=== PATIENT | female | born 1935 | race Caucasian/White ===

== ENCOUNTER 2016-05-08 03:47 | Inpatient (IN) | payer SELFPAY ==
[~2016-05-08] VITALS: Ht 149.9 cm; Wt 39.9 kg
[2016-05-08] VITALS (9 sets, daily range): BP systolic 118–143; BP diastolic 59–89
[2016-05-08] MEDS ORDERED: SODIUM CHLORIDE 0.9% 1,000 ML IV ONE ×2 (04:00→05:30)
[2016-05-08] MEDS ORDERED: LEVOFLOXACIN 750MG PREMIX 150 ML IV ONE (04:30)
[2016-05-08 04:39] LABS: HEMATOCRIT. 33.5 % (36.0-48.0); HEMOGLOBIN. 10.7 g/dL (12.0-16.0); MEAN CORPUSCULAR HEMOGLOBIN 28.4 pg (28.0-32.0); MEAN CORPUSCULAR HGB CONC 31.9 g/dL (31.0-37.0); MEAN PLATELET VOLUME 8.1 fl (7.4-10.4); PLATELET 307 x1000/uL (130-400); RED BLOOD CELL COUNT 3.76 mill/uL (4.2-5.4); RED CELL DISTRIBUTION WIDTH 14.8 % (11.6-14.6); WHITE BLOOD COUNT 24.7 x1000/uL (4.5-11.0)
[2016-05-08] MEDS ORDERED: VANCOMYCIN 1 G PREMIX 200 ML IV SCH (04:45)
[2016-05-08 04:46] LABS: PROTHROMBIN TIME 10.9 sec
[2016-05-08 04:49] LABS: AMMONIA 44 uMol/L (<32); DIFFERENTIAL COMMENT 1; INDEX HEMOLYSI 1 (1-3)
[2016-05-08 05:01] LABS: ALANINE AMINOTRANSFERASE 18 IU/L (13-61); ALBUMIN 2.8 g/dL (3.4-5.0); ANION GAP 16; CALCIUM 8.4 mg/dL (8.5-10.1); CARBON DIOXIDE 26 mEq/L (21-32); CHLORIDE 106 mEq/L (98-107); CREATINE KINASE 120 IU/L (26-192); ETHANOL BLOOD < 10 mg/dL; INDEX HEMOLYSI 1 (1-3); INDEX ICTERIC 1 (1-4); INDEX LIPEMIC 1 (1-3); UREA NITROGEN BLOOD 22 mg/dL (7-21); eGFR > 60 mL/min (>60)
[2016-05-08 05:04] LABS: CLARITY URINE CLOUDY (CLEAR); COLOR URINE YELLOW (YELLOW); GLUCOSE URINE 3+ (NEGATIVE); KETONES URINE NEGATIVE (NEGATIVE); LEUKOCYTE ESTERASE URINE 1+ (NEGATIVE); NITRITE URINE NEGATIVE (NEGATIVE); OCCULT BLOOD URINE TRACE (NEGATIVE); PH URINE 5.5 (4.5-8.0); PROTEIN URINE 1+ (NEGATIVE); SPECIFIC GRAVITY URINE 1.021 (1.005-1.030)
[2016-05-08 05:21] LABS: *AMPHETAMINES SCREEN URINE NEGATIVE (NEGATIVE); *BARBITURATES SCREEN URINE NEGATIVE (NEGATIVE); *BENZODIAZEPINES SCREEN URINE NEGATIVE (NEGATIVE); *COCAINE SCREEN URINE NEGATIVE (NEGATIVE); CANNABINOID URINE SCREEN NEGATIVE (NEGATIVE); ECSTASY MDMA SCREEN URINE NEGATIVE (NEGATIVE); METHADONE URINE SCREEN NEGATIVE (NEGATIVE); OPIATES URINE SCREEN NEGATIVE (NEGATIVE); PHENCYCLIDINE URINE SCREEN NEGATIVE (NEGATIVE)
[2016-05-08 05:30] LABS: BG CARBOXYHEMOGLOBIN 0.3 % (0.5-1.5); BG DEOXYHEMOGLOBIN 0.9 % (0.0-5.0); BG FRACTION INSPIRED OXYGEN 100; BG HCO3 ACT 19.8 mmol/L (22.0-26.0); BG OXYGEN SATURATION 99.1 % (92.0-98.5); BG OXYHEMOGLOBIN 97.8 % (94.0-97.0); BG PCO2 40.1 mmHg (35.0-45.0); BG PH 7.311 (7.350-7.450); BG PO2 342.2 mmHg (75.0-100.0); BG SAMPLE SITE RIGHT RADIAL; BG TOTAL HEMOGLOBIN 11.6 g/dL (12.0-18.0); BG VENT MODE MASK - NRB
[2016-05-08 05:36] LABS: PLATELET ESTIMATE NORMAL
[2016-05-08 05:37] LABS: HYPOCHROMASIA 1+
[2016-05-08 05:38] LABS: BACTERIA URINE 3+
[2016-05-08 05:39] LABS: SQUAMOUS EPITHELIAL CELL URINE RARE /lpf (RARE/1+); WBC URINE 15-25 /hpf (0-2)
[2016-05-08] MEDS ORDERED: ENOXAPARIN 40MG/0.4ML SYR SUBCUT ONE (06:00)
[2016-05-08] MEDS ORDERED: IPRATROPIUM/ALBUTEROL 0.5-3(2.5)MG/3ML NEB HHN PRN (10:00)
[2016-05-08] MEDS ORDERED: ZOSYN XX SCH (10:00)
[2016-05-08] MEDS ORDERED: ONDANSETRON HCL 4MG/2ML VIAL IV PRN ×2 (10:00→10:45)
[2016-05-08 11:01] LABS: HEMATOCRIT. 31.5 % (36.0-48.0); HEMOGLOBIN. 10.4 g/dL (12.0-16.0); MEAN CORPUSCULAR VOLUME 87.8 fL (81.0-99.0); MEAN PLATELET VOLUME 8.4 fl (7.4-10.4); PLATELET 262 x1000/uL (130-400); RED BLOOD CELL COUNT 3.59 mill/uL (4.2-5.4); RED CELL DISTRIBUTION WIDTH 14.6 % (11.6-14.6)
[2016-05-08 11:04] LABS: AMMONIA 41 uMol/L (<32); INDEX HEMOLYSI 1 (1-3)
[2016-05-08 11:09] LABS: DIFFERENTIAL COMMENT 1
[2016-05-08 11:49] LABS: ANION GAP 15; CALCIUM 8.4 mg/dL (8.5-10.1); CARBON DIOXIDE 20 mEq/L (21-32); CHLORIDE 107 mEq/L (98-107); INDEX HEMOLYSI 1 (1-3); INDEX ICTERIC 1 (1-4); INDEX LIPEMIC 1 (1-3); MAGNESIUM 1.9 mg/dL (1.8-2.4); UREA NITROGEN BLOOD 19 mg/dL (7-21); eGFR > 60 mL/min (>60)
[2016-05-08] MEDS ORDERED: PIPERACILLIN/TAZ 2.25G PREMIX 50 ML IV SCH (12:00)
[2016-05-08] MEDS ORDERED: LACTULOSE 20G/30ML UDC PO SCH (12:00)
[2016-05-08] MEDS ORDERED: DEXTROSE 50% WATER 50ML SYRINGE IV PRN (12:15)
[2016-05-08 12:35] LABS: T3 FREE 2.33 pg/ml (2.18-3.98); T4 FREE 1.29 ng/dL (0.76-1.46); THYROID STIMULATING HORMONE 1.7 uIU/mL (0.36-3.74)
[2016-05-08] MEDS: PANTOPRAZOLE SODIUM 40 MG/VIAL IV SCH (12:47)
[2016-05-08] MEDS: INSULIN LISPRO 100 UNITS/ML SUBCUT SCH ×3 (12:48→20:47)
[2016-05-08 13:00] LABS: FOLIC ACID (FOLATE) SERUM 12.6 ng/mL (>5.38)
[2016-05-08] MEDS ORDERED: AZITHROMYCIN 500 MG in DEXT 5% WATER 250 ML IV SCH (14:30)
[2016-05-08] MEDS: BLOOD SUGAR DIAGNOSTIC STRIP TEST SCH ×2 (17:50→20:44)
[2016-05-08] MEDS: PIPERACILLIN/TAZ 3.375G PREMIX 50 ML IV SCH (18:05)
[2016-05-08] MEDS: DEXT 5%/0.9% NACL 1,000 ML IV SCH (18:07)
[2016-05-08 18:44] LABS: ANISOCYTOSIS 1+; PLATELET ESTIMATE NORMAL
[2016-05-08 18:46] LABS: HYPOCHROMASIA 1+
[2016-05-08] MEDS: IPRATROPIUM/ALBUTEROL 0.5-3(2.5)MG/3ML NEB HHN SCH (21:13)
[2016-05-09] VITALS (16 sets, daily range): BP systolic 89–135; BP diastolic 46–81
[2016-05-09] MEDS: PIPERACILLIN/TAZ 3.375G PREMIX 50 ML IV SCH ×5 (00:04→23:19)
[2016-05-09] MEDS: IPRATROPIUM/ALBUTEROL 0.5-3(2.5)MG/3ML NEB HHN SCH ×4 (02:33→21:31)
[2016-05-09] MEDS: VANCOMYCIN 750 MG PREMIX 150 ML IV SCH (04:34)
[2016-05-09 05:55] LABS: BASOPHILS % 0.2 % (0.0-2.0); HEMATOCRIT. 31.7 % (36.0-48.0); HEMOGLOBIN. 10.5 g/dL (12.0-16.0); MEAN CORPUSCULAR HEMOGLOBIN 28.9 pg (28.0-32.0); MEAN CORPUSCULAR VOLUME 87.6 fL (81.0-99.0); MEAN PLATELET VOLUME 8.8 fl (7.4-10.4); MONOCYTES % 8.1 % (2.0-8.0); NEUTROPHILS % 78.7 % (40.0-76.0); PLATELET 238 x1000/uL (130-400); RED BLOOD CELL COUNT 3.62 mill/uL (4.2-5.4); RED CELL DISTRIBUTION WIDTH 15.3 % (11.6-14.6); WHITE BLOOD COUNT 11.6 x1000/uL (4.5-11.0)
[2016-05-09 06:36] LABS: ANION GAP 15; CALCIUM 8.5 mg/dL (8.5-10.1); CARBON DIOXIDE 20 mEq/L (21-32); CHLORIDE 110 mEq/L (98-107); HDL CHOLESTEROL 43 mg/dL (40-59); INDEX HEMOLYSI 2 (1-3); INDEX ICTERIC 1 (1-4); INDEX LIPEMIC 1 (1-3); LDL CHOLESTEROL 41 mg/dL (5-100); TRIGLYCERIDE 107 mg/dL (0-150); UREA NITROGEN BLOOD 19 mg/dL (7-21); eGFR > 60 mL/min (>60)
[2016-05-09] MEDS: BLOOD SUGAR DIAGNOSTIC STRIP TEST SCH ×4 (06:47→21:00)
[2016-05-09] MEDS: INSULIN LISPRO 100 UNITS/ML SUBCUT SCH ×4 (06:58→21:00)
[2016-05-09] MEDS: PANTOPRAZOLE SODIUM 40 MG/VIAL IV SCH (09:09)
[2016-05-09] MEDS ORDERED: POTASSIUM CHLORIDE 20MEQ TABLET SR PO NR (11:45)
[2016-05-09] MEDS ORDERED: ACETYLCYSTEINE 100MG/ML 10% VIAL 4ML INH SCH (12:00)
[2016-05-09] MEDS: DEXT 5%/0.9% NACL 1,000 ML IV SCH (13:00)
[2016-05-09] MEDS: OSELTAMIVIR PHOSPHATE 6 MG/1 ML NG SCH ×2 (14:04→20:39)
[2016-05-09] MEDS: LEVETIRACETAM 500 MG in SODIUM CHLORIDE 0.9% 100 ML IV SCH (15:15)
[2016-05-09] MEDS: ATORVASTATIN CALCIUM 40MG TABLET PO SCH (20:39)
[2016-05-09] MEDS ORDERED: OSELTAMIVIR PHOSPHATE 6 MG/1 ML NG SCH (21:00)
[2016-05-09] MEDS ORDERED: METOPROLOL TARTRATE 25MG TABLET PO SCH (21:00)
[2016-05-09] MEDS: ACETYLCYSTEINE 100MG/ML 10% VIAL 4ML INH SCH (21:31)
[2016-05-10] VITALS (12 sets, daily range): BP systolic 96–135; BP diastolic 52–105
[2016-05-10] MEDS: IPRATROPIUM/ALBUTEROL 0.5-3(2.5)MG/3ML NEB HHN SCH ×6 (00:48→20:09)
[2016-05-10] MEDS: ACETYLCYSTEINE 100MG/ML 10% VIAL 4ML INH SCH ×5 (00:49→20:09)
[2016-05-10] MEDS: VANCOMYCIN 750 MG PREMIX 150 ML IV SCH (01:06)
[2016-05-10] MEDS: LEVETIRACETAM 500 MG in SODIUM CHLORIDE 0.9% 100 ML IV SCH ×2 (03:00→15:03)
[2016-05-10] MEDS: PIPERACILLIN/TAZ 3.375G PREMIX 50 ML IV SCH ×4 (05:17→23:42)
[2016-05-10] MEDS: FAMOTIDINE 20MG TABLET NG SCH (05:49)
[2016-05-10 06:40] LABS: BASOPHILS % 0.5 % (0.0-2.0); EOSINOPHILS % 0.1 % (0.0-5.0); HEMATOCRIT. 31.9 % (36.0-48.0); HEMOGLOBIN. 10.7 g/dL (12.0-16.0); LYMPHOCYTES % 14.1 % (20.0-50.0); MEAN CORPUSCULAR HEMOGLOBIN 29.5 pg (28.0-32.0); MEAN CORPUSCULAR HGB CONC 33.5 g/dL (31.0-37.0); MEAN CORPUSCULAR VOLUME 88.1 fL (81.0-99.0); MEAN PLATELET VOLUME 8.8 fl (7.4-10.4); MONOCYTES % 9.1 % (2.0-8.0); NEUTROPHILS % 76.2 % (40.0-76.0); PLATELET 207 x1000/uL (130-400); RED BLOOD CELL COUNT 3.62 mill/uL (4.2-5.4); RED CELL DISTRIBUTION WIDTH 15.6 % (11.6-14.6); WHITE BLOOD COUNT 9.3 x1000/uL (4.5-11.0)
[2016-05-10] MEDS: BLOOD SUGAR DIAGNOSTIC STRIP TEST SCH ×4 (06:50→20:11)
[2016-05-10] MEDS: INSULIN LISPRO 100 UNITS/ML SUBCUT SCH ×4 (06:56→20:11)
[2016-05-10 06:59] LABS: ANION GAP 11; CALCIUM 8.8 mg/dL (8.5-10.1); CARBON DIOXIDE 26 mEq/L (21-32); CHLORIDE 111 mEq/L (98-107); INDEX HEMOLYSI 1 (1-3); INDEX ICTERIC 1 (1-4); INDEX LIPEMIC 1 (1-3); MAGNESIUM 2.1 mg/dL (1.8-2.4); UREA NITROGEN BLOOD 19 mg/dL (7-21); eGFR > 60 mL/min (>60)
[2016-05-10] MEDS ORDERED: POTASSIUM CHLORIDE 20MEQ TABLET SR PO SCH (09:00)
[2016-05-10] MEDS: OSELTAMIVIR PHOSPHATE 6 MG/1 ML NG SCH ×2 (09:12→20:54)
[2016-05-10] MEDS: CARVEDILOL 3.125 MG TABLET PO SCH ×2 (09:16→20:12)
[2016-05-10] MEDS: LISINOPRIL 2.5MG TABLET PO SCH (09:16)
[2016-05-10] MEDS: FUROSEMIDE 20MG TABLET PO SCH (15:03)
[2016-05-10] MEDS: ATORVASTATIN CALCIUM 40MG TABLET PO SCH (20:54)
[2016-05-11] VITALS (21 sets, daily range): BP systolic 97–135; BP diastolic 58–95
[2016-05-11] MEDS: ACETYLCYSTEINE 100MG/ML 10% VIAL 4ML INH SCH ×6 (00:46→21:56)
[2016-05-11] MEDS: IPRATROPIUM/ALBUTEROL 0.5-3(2.5)MG/3ML NEB HHN SCH ×6 (00:46→21:55)
[2016-05-11] MEDS: LEVETIRACETAM 500 MG in SODIUM CHLORIDE 0.9% 100 ML IV SCH ×2 (02:02→14:34)
[2016-05-11] MEDS: PIPERACILLIN/TAZ 3.375G PREMIX 50 ML IV SCH ×4 (05:12→23:37)
[2016-05-11 05:33] LABS: BASOPHILS % 0.6 % (0.0-2.0); EOSINOPHILS % 1.3 % (0.0-5.0); HEMATOCRIT. 32.7 % (36.0-48.0); HEMOGLOBIN. 10.7 g/dL (12.0-16.0); MEAN CORPUSCULAR HEMOGLOBIN 28.7 pg (28.0-32.0); MEAN CORPUSCULAR HGB CONC 32.6 g/dL (31.0-37.0); MEAN PLATELET VOLUME 8.9 fl (7.4-10.4); MONOCYTES % 7.3 % (2.0-8.0); NEUTROPHILS % 71.8 % (40.0-76.0); PLATELET 207 x1000/uL (130-400); RED BLOOD CELL COUNT 3.71 mill/uL (4.2-5.4); RED CELL DISTRIBUTION WIDTH 15.7 % (11.6-14.6); WHITE BLOOD COUNT 8.5 x1000/uL (4.5-11.0)
[2016-05-11 06:28] LABS: ANION GAP 13; CALCIUM 8.8 mg/dL (8.5-10.1); CARBON DIOXIDE 25 mEq/L (21-32); CHLORIDE 110 mEq/L (98-107); INDEX HEMOLYSI 1 (1-3); INDEX ICTERIC 1 (1-4); INDEX LIPEMIC 1 (1-3); UREA NITROGEN BLOOD 17 mg/dL (7-21); eGFR > 60 mL/min (>60)
[2016-05-11] MEDS: FAMOTIDINE 20MG TABLET NG SCH (06:28)
[2016-05-11] MEDS: BLOOD SUGAR DIAGNOSTIC STRIP TEST SCH ×4 (06:28→21:01)
[2016-05-11] MEDS: INSULIN LISPRO 100 UNITS/ML SUBCUT SCH ×4 (06:42→21:00)
[2016-05-11] MEDS ORDERED: POTASSIUM CHLORIDE 20 MEQ/PACKET PO NR (08:15)
[2016-05-11] MEDS: FUROSEMIDE 20MG TABLET PO SCH (08:58)
[2016-05-11] MEDS: CARVEDILOL 3.125 MG TABLET PO SCH ×2 (08:59→21:00)
[2016-05-11] MEDS: OSELTAMIVIR PHOSPHATE 6 MG/1 ML NG SCH ×2 (08:59→21:13)
[2016-05-11] MEDS: LISINOPRIL 2.5MG TABLET PO SCH (09:00)
[2016-05-11] MEDS: ATORVASTATIN CALCIUM 40MG TABLET PO SCH (21:13)
[2016-05-12] VITALS (21 sets, daily range): BP systolic 82–124; BP diastolic 48–75
[2016-05-12] MEDS: IPRATROPIUM/ALBUTEROL 0.5-3(2.5)MG/3ML NEB HHN SCH ×6 (01:22→21:22)
[2016-05-12] MEDS: ACETYLCYSTEINE 100MG/ML 10% VIAL 4ML INH SCH ×6 (01:22→23:01)
[2016-05-12] MEDS: LEVETIRACETAM 500 MG in SODIUM CHLORIDE 0.9% 100 ML IV SCH ×2 (03:02→17:16)
[2016-05-12] MEDS: FAMOTIDINE 20MG TABLET NG SCH (05:10)
[2016-05-12] MEDS: PIPERACILLIN/TAZ 3.375G PREMIX 50 ML IV SCH ×3 (05:10→17:27)
[2016-05-12] MEDS: INSULIN LISPRO 100 UNITS/ML SUBCUT SCH ×4 (07:20→21:00)
[2016-05-12 07:30] LABS: BASOPHILS % 0.8 % (0.0-2.0); HEMATOCRIT. 33.4 % (36.0-48.0); HEMOGLOBIN. 10.9 g/dL (12.0-16.0); LYMPHOCYTES % 15.4 % (20.0-50.0); MEAN CORPUSCULAR HEMOGLOBIN 28.5 pg (28.0-32.0); MEAN CORPUSCULAR HGB CONC 32.6 g/dL (31.0-37.0); MEAN CORPUSCULAR VOLUME 87.4 fL (81.0-99.0); MEAN PLATELET VOLUME 8.7 fl (7.4-10.4); MONOCYTES % 5.2 % (2.0-8.0); NEUTROPHILS % 77.6 % (40.0-76.0); PLATELET 221 x1000/uL (130-400); RED BLOOD CELL COUNT 3.82 mill/uL (4.2-5.4); RED CELL DISTRIBUTION WIDTH 16.1 % (11.6-14.6); WHITE BLOOD COUNT 10.7 x1000/uL (4.5-11.0)
[2016-05-12] MEDS: BLOOD SUGAR DIAGNOSTIC STRIP TEST SCH ×4 (07:43→21:52)
[2016-05-12 07:55] LABS: CALCIUM 8.5 mg/dL (8.5-10.1)
[2016-05-12] MEDS: FUROSEMIDE 20MG TABLET PO SCH (09:00)
[2016-05-12] MEDS: OSELTAMIVIR PHOSPHATE 6 MG/1 ML NG SCH ×3 (09:00→21:56)
[2016-05-12] MEDS: LISINOPRIL 2.5MG TABLET PO SCH (09:00)
[2016-05-12] MEDS: CARVEDILOL 3.125 MG TABLET PO SCH ×2 (09:00→21:00)
[2016-05-12] MEDS ORDERED: KCL 20MEQ/100ML PREMIX 100 ML IV NR (11:00)
[2016-05-12] MEDS: ATORVASTATIN CALCIUM 40MG TABLET PO SCH (21:55)
[2016-05-13] VITALS (12 sets, daily range): BP systolic 90–123; BP diastolic 46–76
[2016-05-13] MEDS: PIPERACILLIN/TAZ 3.375G PREMIX 50 ML IV SCH ×5 (00:29→23:45)
[2016-05-13] MEDS: IPRATROPIUM/ALBUTEROL 0.5-3(2.5)MG/3ML NEB HHN SCH ×6 (01:39→21:16)
[2016-05-13] MEDS: ACETYLCYSTEINE 100MG/ML 10% VIAL 4ML INH SCH ×6 (01:43→21:16)
[2016-05-13] MEDS: LEVETIRACETAM 500 MG in SODIUM CHLORIDE 0.9% 100 ML IV SCH ×2 (04:09→14:12)
[2016-05-13] MEDS: BLOOD SUGAR DIAGNOSTIC STRIP TEST SCH ×4 (06:32→21:19)
[2016-05-13] MEDS: FAMOTIDINE 20MG TABLET NG SCH (06:32)
[2016-05-13 06:34] LABS: BASOPHILS % 0.5 % (0.0-2.0); EOSINOPHILS % 1.6 % (0.0-5.0); HEMATOCRIT. 32.4 % (36.0-48.0); HEMOGLOBIN. 10.6 g/dL (12.0-16.0); LYMPHOCYTES % 8.5 % (20.0-50.0); MEAN CORPUSCULAR HEMOGLOBIN 28.7 pg (28.0-32.0); MEAN CORPUSCULAR HGB CONC 32.8 g/dL (31.0-37.0); MEAN CORPUSCULAR VOLUME 87.5 fL (81.0-99.0); MEAN PLATELET VOLUME 8.9 fl (7.4-10.4); MONOCYTES % 6.5 % (2.0-8.0); NEUTROPHILS % 82.9 % (40.0-76.0); PLATELET 186 x1000/uL (130-400); RED BLOOD CELL COUNT 3.71 mill/uL (4.2-5.4); RED CELL DISTRIBUTION WIDTH 16.1 % (11.6-14.6)
[2016-05-13] MEDS: INSULIN LISPRO 100 UNITS/ML SUBCUT SCH ×4 (07:20→21:00)
[2016-05-13 07:32] LABS: ANION GAP 12; CALCIUM 8.5 mg/dL (8.5-10.1); CARBON DIOXIDE 25 mEq/L (21-32); CHLORIDE 109 mEq/L (98-107); INDEX HEMOLYSI 1 (1-3); INDEX ICTERIC 1 (1-4); INDEX LIPEMIC 1 (1-3); UREA NITROGEN BLOOD 16 mg/dL (7-21); eGFR > 60 mL/min (>60)
[2016-05-13] MEDS: FUROSEMIDE 20MG TABLET PO SCH (08:36)
[2016-05-13] MEDS: CARVEDILOL 3.125 MG TABLET PO SCH ×2 (08:38→21:19)
[2016-05-13] MEDS: LISINOPRIL 2.5MG TABLET PO SCH (08:38)
[2016-05-13] MEDS: OSELTAMIVIR PHOSPHATE 6 MG/1 ML NG SCH ×2 (09:09→21:19)
[2016-05-13] MEDS ORDERED: POTASSIUM CHLORIDE 20MEQ TABLET SR PO NR (11:15)
[2016-05-13] MEDS ORDERED: ACETAMINOPHEN 650MG/20.3ML UDC PO PRN (20:45)
[2016-05-13] MEDS: NITROFURANTOIN 100MG M/M CAPSULE PO SCH (21:19)
[2016-05-13] MEDS: ATORVASTATIN CALCIUM 40MG TABLET PO SCH (21:19)
[2016-05-13] MEDS: TRAMADOL 50MG TABLET PO PRN (22:58)
[2016-05-14] VITALS (14 sets, daily range): BP systolic 94–130; BP diastolic 48–75
[2016-05-14] MEDS: ACETYLCYSTEINE 100MG/ML 10% VIAL 4ML INH SCH ×2 (00:23→04:39)
[2016-05-14] MEDS: IPRATROPIUM/ALBUTEROL 0.5-3(2.5)MG/3ML NEB HHN SCH ×7 (00:23→23:52)
[2016-05-14] MEDS: LEVETIRACETAM 500 MG in SODIUM CHLORIDE 0.9% 100 ML IV SCH ×2 (03:04→14:45)
[2016-05-14] MEDS: PIPERACILLIN/TAZ 3.375G PREMIX 50 ML IV SCH ×2 (05:09→11:41)
[2016-05-14] MEDS: FAMOTIDINE 20MG TABLET NG SCH (06:23)
[2016-05-14 06:42] LABS: BASOPHILS % 0.6 % (0.0-2.0); EOSINOPHILS % 2.7 % (0.0-5.0); HEMATOCRIT. 31.5 % (36.0-48.0); HEMOGLOBIN. 10.3 g/dL (12.0-16.0); LYMPHOCYTES % 13.1 % (20.0-50.0); MEAN CORPUSCULAR HEMOGLOBIN 28.6 pg (28.0-32.0); MEAN CORPUSCULAR HGB CONC 32.6 g/dL (31.0-37.0); MEAN CORPUSCULAR VOLUME 87.9 fL (81.0-99.0); MEAN PLATELET VOLUME 9.2 fl (7.4-10.4); MONOCYTES % 6.7 % (2.0-8.0); NEUTROPHILS % 76.9 % (40.0-76.0); PLATELET 187 x1000/uL (130-400); RED BLOOD CELL COUNT 3.58 mill/uL (4.2-5.4); RED CELL DISTRIBUTION WIDTH 15.6 % (11.6-14.6); WHITE BLOOD COUNT 12.3 x1000/uL (4.5-11.0)
[2016-05-14] MEDS: BLOOD SUGAR DIAGNOSTIC STRIP TEST SCH ×4 (06:44→21:34)
[2016-05-14] MEDS: INSULIN LISPRO 100 UNITS/ML SUBCUT SCH ×4 (06:44→21:36)
[2016-05-14 07:13] LABS: ANION GAP 12; CALCIUM 8.4 mg/dL (8.5-10.1); CARBON DIOXIDE 27 mEq/L (21-32); CHLORIDE 108 mEq/L (98-107); INDEX HEMOLYSI 1 (1-3); INDEX ICTERIC 1 (1-4); INDEX LIPEMIC 1 (1-3); UREA NITROGEN BLOOD 16 mg/dL (7-21); eGFR > 60 mL/min (>60)
[2016-05-14] MEDS: CARVEDILOL 3.125 MG TABLET PO SCH ×2 (08:48→20:29)
[2016-05-14] MEDS: LISINOPRIL 2.5MG TABLET PO SCH (08:49)
[2016-05-14] MEDS: OSELTAMIVIR PHOSPHATE 6 MG/1 ML NG SCH (09:16)
[2016-05-14] MEDS: NITROFURANTOIN 100MG M/M CAPSULE PO SCH ×2 (09:22→20:28)
[2016-05-14] MEDS: TRAMADOL 50MG TABLET PO PRN (10:15)
[2016-05-14] MEDS: FUROSEMIDE 20MG TABLET PO SCH (10:17)
[2016-05-14] MEDS: ATORVASTATIN CALCIUM 40MG TABLET PO SCH (20:29)
[2016-05-15] VITALS (12 sets, daily range): BP systolic 98–137; BP diastolic 48–78
[2016-05-15] MEDS: LEVETIRACETAM 500 MG in SODIUM CHLORIDE 0.9% 100 ML IV SCH ×2 (02:30→14:28)
[2016-05-15] MEDS: IPRATROPIUM/ALBUTEROL 0.5-3(2.5)MG/3ML NEB HHN SCH ×5 (04:14→21:18)
[2016-05-15] MEDS: FAMOTIDINE 20MG TABLET NG SCH (06:22)
[2016-05-15 06:27] LABS: ANION GAP 12; CALCIUM 8.5 mg/dL (8.5-10.1); CARBON DIOXIDE 26 mEq/L (21-32); CHLORIDE 106 mEq/L (98-107); INDEX HEMOLYSI 1 (1-3); INDEX ICTERIC 1 (1-4); INDEX LIPEMIC 1 (1-3); UREA NITROGEN BLOOD 18 mg/dL (7-21); eGFR > 60 mL/min (>60)
[2016-05-15 06:42] LABS: BASOPHILS % 0.4 % (0.0-2.0); EOSINOPHILS % 1.6 % (0.0-5.0); HEMATOCRIT. 32.9 % (36.0-48.0); HEMOGLOBIN. 10.7 g/dL (12.0-16.0); LYMPHOCYTES % 9.9 % (20.0-50.0); MEAN CORPUSCULAR HGB CONC 32.4 g/dL (31.0-37.0); MEAN CORPUSCULAR VOLUME 89.5 fL (81.0-99.0); MEAN PLATELET VOLUME 9.1 fl (7.4-10.4); MONOCYTES % 7.4 % (2.0-8.0); NEUTROPHILS % 80.7 % (40.0-76.0); PLATELET 203 x1000/uL (130-400); RED BLOOD CELL COUNT 3.68 mill/uL (4.2-5.4); RED CELL DISTRIBUTION WIDTH 16.1 % (11.6-14.6); WHITE BLOOD COUNT 12.8 x1000/uL (4.5-11.0)
[2016-05-15] MEDS: BLOOD SUGAR DIAGNOSTIC STRIP TEST SCH ×4 (06:44→21:00)
[2016-05-15] MEDS: INSULIN LISPRO 100 UNITS/ML SUBCUT SCH ×4 (07:20→21:36)
[2016-05-15] MEDS: ASCORBIC ACID 250 MG TABLET PO SCH ×2 (08:34→17:38)
[2016-05-15] MEDS: MULTIVITAMINS,THER W-MINERALS TABLET PO SCH (08:34)
[2016-05-15] MEDS: ZINC SULFATE 220 MG ( 50 ) CAPSULE PO SCH (08:34)
[2016-05-15] MEDS: FUROSEMIDE 20MG TABLET PO SCH (08:35)
[2016-05-15] MEDS: CARVEDILOL 3.125 MG TABLET PO SCH ×2 (08:35→21:00)
[2016-05-15] MEDS: NITROFURANTOIN 100MG M/M CAPSULE PO SCH ×2 (08:35→21:24)
[2016-05-15] MEDS: LISINOPRIL 2.5MG TABLET PO SCH (08:36)
[2016-05-15] MEDS: TRAMADOL 50MG TABLET PO PRN (14:28)
[2016-05-15] MEDS: ATORVASTATIN CALCIUM 40MG TABLET PO SCH (21:24)
[2016-05-16] VITALS (13 sets, daily range): BP systolic 86–129; BP diastolic 40–81
[2016-05-16] MEDS: IPRATROPIUM/ALBUTEROL 0.5-3(2.5)MG/3ML NEB HHN SCH ×6 (01:04→20:53)
[2016-05-16] MEDS: LEVETIRACETAM 500 MG in SODIUM CHLORIDE 0.9% 100 ML IV SCH ×2 (02:30→14:05)
[2016-05-16] MEDS: FAMOTIDINE 20MG TABLET NG SCH (06:04)
[2016-05-16] MEDS: BLOOD SUGAR DIAGNOSTIC STRIP TEST SCH ×4 (06:04→20:53)
[2016-05-16] MEDS: INSULIN LISPRO 100 UNITS/ML SUBCUT SCH ×4 (06:04→20:53)
[2016-05-16 06:44] LABS: ANION GAP 11; CALCIUM 8.5 mg/dL (8.5-10.1); CARBON DIOXIDE 27 mEq/L (21-32); CHLORIDE 105 mEq/L (98-107); INDEX HEMOLYSI 1 (1-3); INDEX ICTERIC 1 (1-4); INDEX LIPEMIC 1 (1-3); UREA NITROGEN BLOOD 19 mg/dL (7-21); eGFR > 60 mL/min (>60)
[2016-05-16 07:20] LABS: BASOPHILS % 0.5 % (0.0-2.0); EOSINOPHILS % 1.7 % (0.0-5.0); HEMATOCRIT. 29.2 % (36.0-48.0); HEMOGLOBIN. 9.5 g/dL (12.0-16.0); LYMPHOCYTES % 14.9 % (20.0-50.0); MEAN CORPUSCULAR HGB CONC 32.5 g/dL (31.0-37.0); MEAN PLATELET VOLUME 9.4 fl (7.4-10.4); MONOCYTES % 7.9 % (2.0-8.0); PLATELET 183 x1000/uL (130-400); RED BLOOD CELL COUNT 3.28 mill/uL (4.2-5.4); RED CELL DISTRIBUTION WIDTH 15.9 % (11.6-14.6); WHITE BLOOD COUNT 11.5 x1000/uL (4.5-11.0)
[2016-05-16] MEDS: NITROFURANTOIN 100MG M/M CAPSULE PO SCH ×2 (08:11→20:51)
[2016-05-16] MEDS: CARVEDILOL 3.125 MG TABLET PO SCH ×2 (08:11→20:52)
[2016-05-16] MEDS: ASCORBIC ACID 250 MG TABLET PO SCH ×2 (08:11→16:15)
[2016-05-16] MEDS: FUROSEMIDE 20MG TABLET PO SCH (08:11)
[2016-05-16] MEDS: ZINC SULFATE 220 MG ( 50 ) CAPSULE PO SCH (08:11)
[2016-05-16] MEDS: MULTIVITAMINS,THER W-MINERALS TABLET PO SCH (08:11)
[2016-05-16] MEDS: LISINOPRIL 2.5MG TABLET PO SCH (09:00)
[2016-05-16] MEDS: ATORVASTATIN CALCIUM 40MG TABLET PO SCH (20:52)
[2016-05-17] VITALS (15 sets, daily range): BP systolic 85–124; BP diastolic 43–67
[2016-05-17] MEDS: IPRATROPIUM/ALBUTEROL 0.5-3(2.5)MG/3ML NEB HHN SCH ×4 (00:55→12:06)
[2016-05-17] MEDS: LEVETIRACETAM 500 MG in SODIUM CHLORIDE 0.9% 100 ML IV SCH (02:43)
[2016-05-17 06:39] LABS: BASOPHILS % 0.4 % (0.0-2.0); EOSINOPHILS % 1.1 % (0.0-5.0); HEMATOCRIT. 29.2 % (36.0-48.0); HEMOGLOBIN. 9.4 g/dL (12.0-16.0); LYMPHOCYTES % 15.9 % (20.0-50.0); MEAN CORPUSCULAR HEMOGLOBIN 28.3 pg (28.0-32.0); MEAN CORPUSCULAR HGB CONC 32.4 g/dL (31.0-37.0); MEAN CORPUSCULAR VOLUME 87.5 fL (81.0-99.0); MEAN PLATELET VOLUME 9.1 fl (7.4-10.4); MONOCYTES % 7.9 % (2.0-8.0); NEUTROPHILS % 74.7 % (40.0-76.0); PLATELET 177 x1000/uL (130-400); RED BLOOD CELL COUNT 3.33 mill/uL (4.2-5.4); RED CELL DISTRIBUTION WIDTH 15.6 % (11.6-14.6)
[2016-05-17] MEDS: BLOOD SUGAR DIAGNOSTIC STRIP TEST SCH ×2 (06:48→12:29)
[2016-05-17] MEDS: INSULIN LISPRO 100 UNITS/ML SUBCUT SCH ×2 (06:49→12:49)
[2016-05-17] MEDS: FAMOTIDINE 20MG TABLET NG SCH (06:50)
[2016-05-17 07:52] LABS: ANION GAP 11; CALCIUM 8.5 mg/dL (8.5-10.1); CARBON DIOXIDE 27 mEq/L (21-32); CHLORIDE 105 mEq/L (98-107); INDEX HEMOLYSI 1 (1-3); INDEX ICTERIC 1 (1-4); INDEX LIPEMIC 1 (1-3); UREA NITROGEN BLOOD 20 mg/dL (7-21); eGFR > 60 mL/min (>60)
[2016-05-17] MEDS: LISINOPRIL 2.5MG TABLET PO SCH (09:00)
[2016-05-17] MEDS: MULTIVITAMINS,THER W-MINERALS TABLET PO SCH (09:02)
[2016-05-17] MEDS: NITROFURANTOIN 100MG M/M CAPSULE PO SCH (09:02)
[2016-05-17] MEDS: ZINC SULFATE 220 MG ( 50 ) CAPSULE PO SCH (09:02)
[2016-05-17] MEDS: ASCORBIC ACID 250 MG TABLET PO SCH (09:02)
[2016-05-17] MEDS: FUROSEMIDE 20MG TABLET PO SCH (09:02)
[2016-05-17] MEDS: CARVEDILOL 3.125 MG TABLET PO SCH (09:08)
== END 2016-05-17 16:14 | disposition home or self-care (01) | DRG 720 ==
LOC: ER 03:48 → 3WST 05:45 → UNDODISIN 05-17 13:24
PROVIDERS: ADMIT Family Medicine Adult Medicine; ATTEND Family Medicine Adult Medicine
PROC: 02HV33Z Insertion of Infusion Device into Superior Vena Cava, Percutaneous Approach (ICD-10-PCS; principal; 2016-05-09)
PROC: B548ZZA Ultrasonography of Superior Vena Cava, Guidance (ICD-10-PCS; 2016-05-09)
DX: A41.9 Sepsis, unspecified organism (principal); J96.00 Acute respiratory failure, unspecified whether with hypoxia or hypercapnia; I21.4 Non-ST elevation (NSTEMI) myocardial infarction; J69.0 Pneumonitis due to inhalation of food and vomit; I62.03 Nontraumatic chronic subdural hemorrhage; E43 Unspecified severe protein-calorie malnutrition; G92 Toxic encephalopathy; I42.9 Cardiomyopathy, unspecified; R62.7 Adult failure to thrive; I11.0 Hypertensive heart disease with heart failure; I50.22 Chronic systolic (congestive) heart failure; E11.65 Type 2 diabetes mellitus with hyperglycemia; N39.0 Urinary tract infection, site not specified; D64.9 Anemia, unspecified; E72.20 Disorder of urea cycle metabolism, unspecified; R26.9 Unspecified abnormalities of gait and mobility; H70.10 Chronic mastoiditis, unspecified ear; E87.6 Hypokalemia; I34.0 Nonrheumatic mitral (valve) insufficiency; I45.10 Unspecified right bundle-branch block; B96.89 Other specified bacterial agents as the cause of diseases classified elsewhere; J32.9 Chronic sinusitis, unspecified; J09.X2 Influenza due to identified novel influenza A virus with other respiratory manifestations; Z79.84 Long term (current) use of oral hypoglycemic drugs; Z68.1 Body mass index [BMI] 19.9 or less, adult
CPT/HCPCS: 36415; 36569; 36600; 51702; 70450; 70544; 70553; 71010; 76937; 80048; 80053; 80061; 80305; 81001; 82140; 82375; 82550; 82607; 82746; 82805; 82962; 83036; 83605; 83735; 84439; 84443; 84481; 84484; 85025; 85610; 86850; 86900; 87040; 87077; 87086; 87186; 87493; 87804; 92610; 93005; 93306; 93880; 94640; 94664; 96361; 96365; 96366; 96368; 96372; 97163; 97530; 99291; A6261; C1725; C9113; G0482; J0456; J1650; J1815; J1953; J1956; J2405; J2543; J3370; J3480; J7030; J7040; J7042; J7050; J7060; J7608; J7620